=== PATIENT | male | born 1945 | race Caucasian/White ===

== ENCOUNTER 2016-08-31 20:34 | Inpatient (IN) | payer OTHER ==
[~2016-08-31] VITALS: Ht 172.7 cm; Wt 145.1 kg
[~2016-08-31 20:34] MED LIST: AMARYL 2MG TABLE2 MG PO; ASPIRIN EC81 MG PO; AUGMENTIN 875-1 EACH PO; DOXYCYCLINE HY100 MG PO; ELIQUIS5 MG PO; GLUCOPHAGE500 MG PO; LANOXIN TAB 00.25 MG PO; LASIX20 MG PO; LOPRESSOR 50 MG50 MG PO; LOSARTAN POTASS50 MG PO; NORVASC 5 MG TAB5 MG PO
[2016-08-31 21:51] LABS: HEMOGLOBIN 15.8 gm/dl (14.0-17.5); RED BLOOD COUNT 5.22 M/UL (4.20-5.50); WHITE BLOOD COUNT 7.1 K/UL (4.5-11.0)
[2016-08-31 22:12] LABS: BUN/CREATININE RATIO 14 (0-10)
[2016-09-01] MEDS ORDERED: COZAAR25 MG PO (01:43)
[2016-09-01] MEDS ORDERED: ONE-TABLET-DAI1 EACH PO (01:45)
--- NOTE | 2016-09-02 18:30 | NUR ---
NO CHANGES NOTED THIS SHIFT. NO C/O PAIN. LIFELINE WITHIN REACH. WILL CONTINUE TO MONITOR.
[2016-09-05 04:40] LABS: HEMOGLOBIN 15.3 gm/dl (14.0-17.5); RED BLOOD COUNT 5.07 M/UL (4.20-5.50); WHITE BLOOD COUNT 6.7 K/UL (4.5-11.0)
[2016-09-05 05:01] LABS: BUN/CREATININE RATIO 14 (0-10)
[2016-09-06 19:30] LABS: HEMOGLOBIN 15.4 gm/dl (14.0-17.5); RED BLOOD COUNT 5.07 M/UL (4.20-5.50); WHITE BLOOD COUNT 6.9 K/UL (4.5-11.0)
[2016-09-06 19:52] LABS: BUN/CREATININE RATIO 12 (0-10)
[2016-09-07 04:19] LABS: HEMOGLOBIN 14.8 gm/dl (14.0-17.5); RED BLOOD COUNT 4.95 M/UL (4.20-5.50); WHITE BLOOD COUNT 6.7 K/UL (4.5-11.0)
[2016-09-07] MEDS ORDERED: PLAVIX 75 MG TA75 MG PO (16:24)
[2016-09-07] MEDS ORDERED: GLUCOTROL5 MG PO (16:26)
[2016-11-18] MEDS ORDERED: LEVAQUIN500 MG PO (09:52)
[2016-11-18] MEDS ORDERED: ULTRAM50 MG PO (09:53)
== END 2016-09-07 17:49 | disposition home or self-care (01) | DRG 246 ==
LOC: ER1 20:34 → PROG CARE 23:15 → M/S 23:15 → ZEROF 23:15 → M/S 09-01 01:46 → PROG CARE 09-03 14:37
PROVIDERS: Internal Medicine; Physician Assistant; Student in an Organized Health Care Education/Training Program; ADMIT Internal Medicine
PROC: 027034Z Dilation of Coronary Artery, One Artery with Drug-eluting Intraluminal Device, Percutaneous Approach (ICD-10-PCS; principal; 2016-09-06)
PROC: 4A033BC Measurement of Arterial Pressure, Coronary, Percutaneous Approach (ICD-10-PCS; 2016-09-06)
PROC: 4A023N7 Measurement of Cardiac Sampling and Pressure, Left Heart, Percutaneous Approach (ICD-10-PCS; 2016-09-06)
PROC: B2111ZZ Fluoroscopy of Multiple Coronary Arteries using Low Osmolar Contrast (ICD-10-PCS; 2016-09-06)
DX: I25.110 Atherosclerotic heart disease of native coronary artery with unstable angina pectoris (principal); I50.23 Acute on chronic systolic (congestive) heart failure; Z68.42 Body mass index [BMI] 45.0-49.9, adult; I47.2 Ventricular tachycardia; E66.01 Morbid (severe) obesity due to excess calories; I11.0 Hypertensive heart disease with heart failure; I42.0 Dilated cardiomyopathy; I48.2 Chronic atrial fibrillation; E11.65 Type 2 diabetes mellitus with hyperglycemia; I35.0 Nonrheumatic aortic (valve) stenosis; I87.2 Venous insufficiency (chronic) (peripheral); I87.8 Other specified disorders of veins; I44.7 Left bundle-branch block, unspecified; E78.5 Hyperlipidemia, unspecified; G47.33 Obstructive sleep apnea (adult) (pediatric); Z72.89 Other problems related to lifestyle; Z85.828 Personal history of other malignant neoplasm of skin; Z72.3 Lack of physical exercise; Z79.01 Long term (current) use of anticoagulants; Z79.84 Long term (current) use of oral hypoglycemic drugs; Z79.82 Long term (current) use of aspirin; Z79.899 Other long term (current) drug therapy; Z88.5 Allergy status to narcotic agent; Z98.890 Other specified postprocedural states; Z83.3 Family history of diabetes mellitus; Z82.49 Family history of ischemic heart disease and other diseases of the circulatory system
CPT/HCPCS: ECHO; 36415; 71010; 78452; 80048; 80053; 80061; 80162; 82550; 82553; 82962; 83735; 83874; 84439; 84443; 84484; 85025; 85027; 85347; 93005; 93017; 93306; 93571; 93572; 99285; A9502; C1725; C1769; C1874; C1887; C1894; C9600; G0378; J0153; J0360; J0583; J1644; J2250; J2785; J3010; J7040; Q9963

== ENCOUNTER 2016-09-13 21:48 | Observation (INO) | payer OTHER ==
[~2016-09-13] VITALS: Ht 172.7 cm; Wt 132.0 kg
[~2016-09-13 21:48] MED LIST changes: +COZAAR25 MG PO; +GLUCOTROL5 MG PO; +ONE-TABLET-DAI1 EACH PO; +PLAVIX 75 MG TA75 MG PO
[2016-09-13 22:37] LABS: HEMOGLOBIN 15.4 gm/dl (14.0-17.5); RED BLOOD COUNT 5.07 M/UL (4.20-5.50); WHITE BLOOD COUNT 6.5 K/UL (4.5-11.0)
[2016-09-13 23:07] LABS: BUN/CREATININE RATIO 16 (0-10)
[2016-09-14] MEDS ORDERED: THERA-M CAPLET1 EACH PO (10:06)
[2016-09-14] MEDS ORDERED: GARLIC1 MG PO (10:10)
[2016-11-18] MEDS ORDERED: LEVAQUIN500 MG PO (09:52)
[2016-11-18] MEDS ORDERED: ULTRAM50 MG PO (09:53)
== END 2016-09-14 15:16 | disposition home or self-care (01) ==
LOC: ER1 21:48 → ZEROF 09-14 05:30
PROVIDERS: Family Medicine; ADMIT Hospitalist
DX: I48.2 Chronic atrial fibrillation (principal); Z68.42 Body mass index [BMI] 45.0-49.9, adult; I50.22 Chronic systolic (congestive) heart failure; I11.0 Hypertensive heart disease with heart failure; I42.0 Dilated cardiomyopathy; E78.5 Hyperlipidemia, unspecified; I44.7 Left bundle-branch block, unspecified; E11.9 Type 2 diabetes mellitus without complications; I25.10 Atherosclerotic heart disease of native coronary artery without angina pectoris; Z95.5 Presence of coronary angioplasty implant and graft; Z85.828 Personal history of other malignant neoplasm of skin; Z83.3 Family history of diabetes mellitus; Z88.5 Allergy status to narcotic agent; Z79.82 Long term (current) use of aspirin; Z79.01 Long term (current) use of anticoagulants; Z79.899 Other long term (current) drug therapy; E66.9 Obesity, unspecified; F10.20 Alcohol dependence, uncomplicated; I87.8 Other specified disorders of veins; R60.0 Localized edema; Z82.49 Family history of ischemic heart disease and other diseases of the circulatory system
CPT/HCPCS: 36415; 80053; 82550; 82553; 83874; 84484; 85025; 93005; 96374; 99285; G0378

== ENCOUNTER → 2016-10-11 | Outpatient (CLI) | payer OTHER ==
[~2016-10-11] MED LIST changes: +GARLIC1 MG PO; +LEVAQUIN500 MG PO; +THERA-M CAPLET1 EACH PO; +ULTRAM50 MG PO
== END ==
LOC: CARD REHAB 13:00
DX: Z48.812 Encounter for surgical aftercare following surgery on the circulatory system (principal); Z98.61 Coronary angioplasty status

== ENCOUNTER → 2016-10-20 | Outpatient (CLI) | payer OTHER | LOC: HEART 5 09:54 | DX: I48.91 Unspecified atrial fibrillation (principal); I50.9 Heart failure, unspecified | CPT/HCPCS: 93306 ==

== ENCOUNTER → 2020-07-14 | Outpatient (CLI) | payer OTHER ==
[~2020-07-14] MED LIST changes: +AMIODARONE HCL200 MG PO; +COZAAR100 MG PO; -COZAAR25 MG PO; +CRESTOR10 MG PO; +DIGOXIN125 MCG PO; +ENTRESTO 24 MG1 EACH PO; +ENTRESTO 49 MG1 EACH PO; +FLOMAX 0.4 MG0.4 MG PO; +IMDUR ER TAB 3030 MG PO; +JANUVIA100 MG PO; +K-DUR TAB 20 M20 MEQ PO; +LANTUS INS100 UTS/M1 SQ; +LANTUS SOL100 UNIT/1 SQ; +LANTUS100 UNIT/1 SQ; -LASIX20 MG PO; +LASIX40 MG PO; +MUPIROCIN30 GM TP; +NOVOLOG FL100 UNIT/1 SQ; +NYAMYC60 GM TOP; +TIZANIDINE HCL2 MG PO; +TRAMADOL HCL50 MG PO; +ZYVOX600 MG PO
[2020-07-14 12:33] LABS: HEMOGLOBIN 11.7 gm/dl (14.0-17.5); RED BLOOD COUNT 3.9 M/UL (4.20-5.50); WHITE BLOOD COUNT 3.4 K/UL (4.5-11.0)
== END ==
LOC: LAB 11:55
PROVIDERS: Family Medicine
DX: E11.9 Type 2 diabetes mellitus without complications (principal); E78.5 Hyperlipidemia, unspecified; I10 Essential (primary) hypertension; E55.9 Vitamin D deficiency, unspecified; I48.91 Unspecified atrial fibrillation
CPT/HCPCS: 36415; 80053; 80061; 80162; 84439; 84443; 84481; 85025

== ENCOUNTER 2020-07-22 02:45 | Emergency (ER) | payer OTHER ==
[~2020-07-22 02:45] MED LIST changes: -LANTUS SOL100 UNIT/1 SQ; -MUPIROCIN30 GM TP; -NYAMYC60 GM TOP; -ZYVOX600 MG PO
[2020-07-22 06:06] LABS: BUN/CREATININE RATIO 11 (0-10)
[2020-07-22 06:13] LABS: HEMOGLOBIN 11.2 gm/dl (14.0-17.5); RED BLOOD COUNT 3.79 M/UL (4.20-5.50); WHITE BLOOD COUNT 3.3 K/UL (4.5-11.0)
== END 2020-07-22 07:15 | disposition home or self-care (01) ==
LOC: ER1 02:45
PROVIDERS: Family Medicine
DX: D69.6 Thrombocytopenia, unspecified (principal); I50.9 Heart failure, unspecified; E11.9 Type 2 diabetes mellitus without complications; Z88.5 Allergy status to narcotic agent; Z88.8 Allergy status to other drugs, medicaments and biological substances
CPT/HCPCS: 80053; 82550; 82553; 83874; 83880; 84484; 85025; 85610; 93005; 99283

== ENCOUNTER → 2020-08-08 | Outpatient (CLI) | payer OTHER ==
[~2020-08-08] MED LIST changes: +LANTUS SOL100 UNIT/1 SQ; +MUPIROCIN30 GM TP; +NYAMYC60 GM TOP; +ZYVOX600 MG PO
== END ==
LOC: US 10:00
DX: D69.6 Thrombocytopenia, unspecified (principal); R16.1 Splenomegaly, not elsewhere classified
CPT/HCPCS: 76705

== ENCOUNTER → 2020-08-18 | Outpatient (CLI) | payer OTHER | LOC: HEART 5 08:57 | DX: Z79.899 Other long term (current) drug therapy (principal); R06.00 Dyspnea, unspecified; R05 Cough; R06.2 Wheezing | CPT/HCPCS: 94060; 94729 ==

== ENCOUNTER 2020-08-26 15:44 | Inpatient (IN) | payer OTHER ==
[~2020-08-26] VITALS: Ht 175.3 cm; Wt 146.1 kg
[~2020-08-26 15:44] MED LIST changes: -LANTUS SOL100 UNIT/1 SQ; -MUPIROCIN30 GM TP; -NYAMYC60 GM TOP; -ZYVOX600 MG PO
[2020-08-26 17:13] LABS: HEMOGLOBIN 10.7 gm/dl (14.0-17.5); RED BLOOD COUNT 3.45 M/UL (4.20-5.50); WHITE BLOOD COUNT 3.7 K/UL (4.5-11.0)
[2020-08-26] MEDS ORDERED: LANTUS SOL100 UNIT/1 SQ (20:31)
[2020-08-26] MEDS ORDERED: NYAMYC60 GM TOP (20:36)
[2020-08-26] MEDS ORDERED: MUPIROCIN30 GM TP (20:38)
[2020-08-27 04:30] LABS: HEMOGLOBIN 10.7 gm/dl (14.0-17.5); RED BLOOD COUNT 3.52 M/UL (4.20-5.50); WHITE BLOOD COUNT 4.2 K/UL (4.5-11.0)
--- NOTE | 2020-08-27 17:10 | NUR ---
APPLIED BACTROBANN OINTMENT TO BILATERAL LOWER EXTRIMITIES AND OPEN TO AIR.PATIENT PRISCILLA WELL
--- NOTE | 2020-08-28 07:35 | NUR ---
PT STATES HE HAS TO HAVE BLOOD PRESSURE MEDS EVEN THOUGH HIS BLOOD PRESSURE IS IN THE HIGH 90"S SYSTOLIC. I EXPLAINED THE RISK OF LOW BLOOD PRESSURE AND HE STILL WANTED THEM
[2020-08-29] MEDS ORDERED: ZYVOX600 MG PO (12:31)
== END 2020-08-29 15:27 | disposition home or self-care (01) | DRG 603 ==
LOC: ER1 15:44 → CDU 18:16 → MED SURG 4 18:16
PROVIDERS: Emergency Medicine; ADMIT Internal Medicine
DX: L03.115 Cellulitis of right lower limb (principal); I50.32 Chronic diastolic (congestive) heart failure; I13.0 Hypertensive heart and chronic kidney disease with heart failure and stage 1 through stage 4 chronic kidney disease, or unspecified chronic kidney disease; I42.0 Dilated cardiomyopathy; D61.818 Other pancytopenia; Z68.42 Body mass index [BMI] 45.0-49.9, adult; L97.819 Non-pressure chronic ulcer of other part of right lower leg with unspecified severity; Z20.822 Contact with and (suspected) exposure to COVID-19; N18.30 Chronic kidney disease, stage 3 unspecified; I25.10 Atherosclerotic heart disease of native coronary artery without angina pectoris; E78.5 Hyperlipidemia, unspecified; E66.01 Morbid (severe) obesity due to excess calories; I87.2 Venous insufficiency (chronic) (peripheral); E11.622 Type 2 diabetes mellitus with other skin ulcer; I35.0 Nonrheumatic aortic (valve) stenosis; I87.8 Other specified disorders of veins; I48.91 Unspecified atrial fibrillation; Z95.5 Presence of coronary angioplasty implant and graft; Z79.01 Long term (current) use of anticoagulants; Z95.810 Presence of automatic (implantable) cardiac defibrillator; Z88.6 Allergy status to analgesic agent; Z88.8 Allergy status to other drugs, medicaments and biological substances; Z83.3 Family history of diabetes mellitus; Z82.49 Family history of ischemic heart disease and other diseases of the circulatory system; Z79.4 Long term (current) use of insulin
CPT/HCPCS: 36415; 80048; 80053; 80202; 82962; 83735; 85025; 85652; 86140; 96374; 99284; G0378; J0696; J2543; J3370; J7070; U0002

== ENCOUNTER → 2021-02-02 | Outpatient (CLI) | payer OTHER ==
[~2021-02-02] MED LIST changes: +LANTUS SOL100 UNIT/1 SQ; +MUPIROCIN30 GM TP; +NYAMYC60 GM TOP; +ZYVOX600 MG PO
== END ==
LOC: KOH-I 11:23
DX: M25.562 Pain in left knee (principal); M17.12 Unilateral primary osteoarthritis, left knee
CPT/HCPCS: 73560

== ENCOUNTER → 2021-02-23 | Outpatient (CLI) | payer OTHER ==
[2021-02-23 16:42] LABS: RED BLOOD COUNT 3.82 M/UL (4.20-5.50); WHITE BLOOD COUNT 3.5 K/UL (4.5-11.0)
== END ==
LOC: LAB 12:18
PROVIDERS: Internal Medicine Cardiovascular Disease
DX: D64.9 Anemia, unspecified (principal); I48.91 Unspecified atrial fibrillation; R60.9 Edema, unspecified; I47.2 Ventricular tachycardia; I11.0 Hypertensive heart disease with heart failure; I50.22 Chronic systolic (congestive) heart failure; I25.119 Atherosclerotic heart disease of native coronary artery with unspecified angina pectoris; E78.5 Hyperlipidemia, unspecified; I25.5 Ischemic cardiomyopathy; I42.0 Dilated cardiomyopathy; Z79.899 Other long term (current) drug therapy
CPT/HCPCS: 80076; 84439; 84443; 84481; 85025

== ENCOUNTER 2021-09-16 14:17 | Inpatient (IN) | payer OTHER ==
[~2021-09-16] VITALS: Ht 175.3 cm; Wt 152.9 kg
[2021-09-16 15:24] LABS: HEMOGLOBIN 10.5 gm/dl (14.0-17.5); RED BLOOD COUNT 3.46 M/UL (4.20-5.50); WHITE BLOOD COUNT 4.2 K/UL (4.5-11.0)
[2021-09-16 16:02] LABS: BUN/CREATININE RATIO 18 (0-10)
[2021-09-16] MEDS ORDERED: LEVOTHYROXINE150 MCG PO (22:27)
[2021-09-16] MEDS ORDERED: HYDROCODON-ACE1 EAC4 PO (22:29)
[2021-09-17 06:28] LABS: HEMOGLOBIN 10.3 gm/dl (14.0-17.5); RED BLOOD COUNT 3.4 M/UL (4.20-5.50)
[2021-09-17 06:29] LABS: WHITE BLOOD COUNT 5.6 K/UL (4.5-11.0)
[2021-09-17 06:42] LABS: BUN/CREATININE RATIO 16 (0-10)
[2021-09-17] MEDS ORDERED: AMMONIUM LACTA225 GM TOP (12:03)
[2021-09-17] MEDS ORDERED: CLINDAMYCIN HC300 MG PO (12:04)
[2021-09-17] MEDS ORDERED: MYCOSTATIN100000 UTS PO (12:04)
[2021-09-17] MEDS ORDERED: FOLIC ACID 1 MG1 MG PO (12:05)
[2021-09-17] MEDS ORDERED: B-122500 MCG SL (12:05)
[2021-09-17] MEDS ORDERED: DIGOXIN125 MCG PO (12:06)
[2021-09-18 04:32] LABS: HEMOGLOBIN 9.7 gm/dl (14.0-17.5); RED BLOOD COUNT 3.2 M/UL (4.20-5.50); WHITE BLOOD COUNT 5.2 K/UL (4.5-11.0)
[2021-09-18 04:58] LABS: BUN/CREATININE RATIO 14 (0-10)
[2021-09-19 03:28] LABS: HEMOGLOBIN 9.5 gm/dl (14.0-17.5); RED BLOOD COUNT 3.16 M/UL (4.20-5.50); WHITE BLOOD COUNT 4.5 K/UL (4.5-11.0)
[2021-09-19 04:01] LABS: BUN/CREATININE RATIO 14 (0-10)
--- NOTE | 2021-09-19 14:13 | NUR ---
09/19/21 1400 REPORT CALLED TO [facility] FOR [facility]
[2021-09-19] MEDS ORDERED: CIPRO500 MG PO (14:50)
== END 2021-09-19 16:32 | disposition home health service (06) | DRG 603 ==
LOC: ER1 14:17 → CDU 21:50 → M/S 21:50
PROVIDERS: Internal Medicine Infectious Disease; ADMIT Internal Medicine
DX: L03.116 Cellulitis of left lower limb (principal); I50.22 Chronic systolic (congestive) heart failure; Z20.822 Contact with and (suspected) exposure to COVID-19; I48.20 Chronic atrial fibrillation, unspecified; Z68.42 Body mass index [BMI] 45.0-49.9, adult; L03.115 Cellulitis of right lower limb; I87.8 Other specified disorders of veins; Z88.8 Allergy status to other drugs, medicaments and biological substances; I11.0 Hypertensive heart disease with heart failure; E66.01 Morbid (severe) obesity due to excess calories; I45.4 Nonspecific intraventricular block; B96.5 Pseudomonas (aeruginosa) (mallei) (pseudomallei) as the cause of diseases classified elsewhere; I48.0 Paroxysmal atrial fibrillation; E11.9 Type 2 diabetes mellitus without complications; E78.5 Hyperlipidemia, unspecified; Z96.698 Presence of other orthopedic joint implants; D63.8 Anemia in other chronic diseases classified elsewhere; E03.9 Hypothyroidism, unspecified; D69.6 Thrombocytopenia, unspecified; I25.5 Ischemic cardiomyopathy; Z95.810 Presence of automatic (implantable) cardiac defibrillator; Z79.01 Long term (current) use of anticoagulants; Z95.5 Presence of coronary angioplasty implant and graft
CPT/HCPCS: 36415; 80048; 80053; 82550; 82553; 82607; 82962; 83036; 83605; 83735; 84484; 85025; 85652; 86140; 87040; 87070; 87077; 87186; 87205; 93005; 96365; 96366; 96375; 99284; J1940; J2185; J2543; J3370; J7030; J7070

== ENCOUNTER → 2021-09-28 | Outpatient (CLI) | payer OTHER ==
[~2021-09-28] MED LIST changes: +AMMONIUM LACTA225 GM TOP; +B-122500 MCG SL; +CIPRO500 MG PO; +CLINDAMYCIN HC300 MG PO; +FOLIC ACID 1 MG1 MG PO; +HYDROCODON-ACE1 EAC4 PO; +LEVOTHYROXINE150 MCG PO; +MYCOSTATIN100000 UTS PO
== END ==
LOC: HEART 5 13:00
DX: I50.22 Chronic systolic (congestive) heart failure (principal); I25.10 Atherosclerotic heart disease of native coronary artery without angina pectoris; I08.3 Combined rheumatic disorders of mitral, aortic and tricuspid valves; I27.20 Pulmonary hypertension, unspecified; Z95.0 Presence of cardiac pacemaker
CPT/HCPCS: 93306

== ENCOUNTER → 2021-11-11 | Outpatient (CLI) | payer OTHER | END | disposition home or self-care (01) | LOC: WCC 07:37 | DX: I87.313 Chronic venous hypertension (idiopathic) with ulcer of bilateral lower extremity (principal); I13.0 Hypertensive heart and chronic kidney disease with heart failure and stage 1 through stage 4 chronic kidney disease, or unspecified chronic kidney disease; E11.22 Type 2 diabetes mellitus with diabetic chronic kidney disease; N18.9 Chronic kidney disease, unspecified; I50.9 Heart failure, unspecified; I48.91 Unspecified atrial fibrillation; I25.10 Atherosclerotic heart disease of native coronary artery without angina pectoris; E66.01 Morbid (severe) obesity due to excess calories; B96.5 Pseudomonas (aeruginosa) (mallei) (pseudomallei) as the cause of diseases classified elsewhere; Z68.42 Body mass index [BMI] 45.0-49.9, adult; Z88.8 Allergy status to other drugs, medicaments and biological substances ==

== ENCOUNTER → 2021-11-18 | Outpatient (CLI) | payer OTHER | LOC: WCC 07:32 | DX: I87.333 Chronic venous hypertension (idiopathic) with ulcer and inflammation of bilateral lower extremity (principal); L03.116 Cellulitis of left lower limb; L03.115 Cellulitis of right lower limb; B96.5 Pseudomonas (aeruginosa) (mallei) (pseudomallei) as the cause of diseases classified elsewhere; I13.0 Hypertensive heart and chronic kidney disease with heart failure and stage 1 through stage 4 chronic kidney disease, or unspecified chronic kidney disease; E11.22 Type 2 diabetes mellitus with diabetic chronic kidney disease; I50.42 Chronic combined systolic (congestive) and diastolic (congestive) heart failure; N18.9 Chronic kidney disease, unspecified; I25.10 Atherosclerotic heart disease of native coronary artery without angina pectoris; E11.622 Type 2 diabetes mellitus with other skin ulcer; E66.01 Morbid (severe) obesity due to excess calories; I89.0 Lymphedema, not elsewhere classified; Z68.42 Body mass index [BMI] 45.0-49.9, adult; Z88.5 Allergy status to narcotic agent; Z79.01 Long term (current) use of anticoagulants ==

== ENCOUNTER 2021-11-30 15:30 | Inpatient (IN) | payer OTHER ==
[~2021-11-30] VITALS: Ht 175.3 cm; Wt 149.7 kg
[~2021-11-30 15:30] MED LIST changes: -HYDROCODON-ACE1 EAC4 PO; +HYDROCODON-ACE1 EAC6 PO
[2021-11-30 18:41] LABS: HEMOGLOBIN 11.3 gm/dl (14.0-17.5); RED BLOOD COUNT 3.81 M/UL (4.20-5.50); WHITE BLOOD COUNT 5.7 K/UL (4.5-11.0)
[2021-11-30 19:04] LABS: BUN/CREATININE RATIO 15 (0-10)
[2021-12-01 05:01] LABS: HEMOGLOBIN 10.3 gm/dl (14.0-17.5); RED BLOOD COUNT 3.53 M/UL (4.20-5.50); WHITE BLOOD COUNT 6.8 K/UL (4.5-11.0)
[2021-12-01] MEDS ORDERED: NITROGLYCERIN0.4 MG SL (09:15)
[2021-12-01] MEDS ORDERED: IRON325 M1 PO (11:28)
[2021-12-02 03:52] LABS: HEMOGLOBIN 10.3 gm/dl (14.0-17.5); RED BLOOD COUNT 3.49 M/UL (4.20-5.50); WHITE BLOOD COUNT 5.6 K/UL (4.5-11.0)
[2021-12-03 02:31] LABS: HEMOGLOBIN 10.8 gm/dl (14.0-17.5); RED BLOOD COUNT 3.63 M/UL (4.20-5.50)
[2021-12-03] MEDS ORDERED: DOXYCYCLINE HY100 MG PO (10:05)
[2021-12-03] MEDS ORDERED: CEPHALEXIN500 MG PO (10:05)
[2021-12-03] MEDS ORDERED: FERROUS SULFAT325 M2 PO (10:05)
--- NOTE | 2021-12-03 14:43 | NUR ---
1200- ATTEMPTED TO CALL REPORT TO [facility]. HAD TO LEAVE A MESSAGE FOR NURSE TO RETURN MY CALL.
== END 2021-12-03 14:25 | disposition home or self-care (01) | DRG 603 ==
LOC: ER1 15:30 → CDU 21:58 → M/S 21:58
PROVIDERS: Internal Medicine; Nurse Practitioner; ADMIT Internal Medicine
DX: L03.116 Cellulitis of left lower limb (principal); K62.5 Hemorrhage of anus and rectum; I50.22 Chronic systolic (congestive) heart failure; Z20.822 Contact with and (suspected) exposure to COVID-19; I13.0 Hypertensive heart and chronic kidney disease with heart failure and stage 1 through stage 4 chronic kidney disease, or unspecified chronic kidney disease; Z68.42 Body mass index [BMI] 45.0-49.9, adult; I87.2 Venous insufficiency (chronic) (peripheral); I48.91 Unspecified atrial fibrillation; E03.9 Hypothyroidism, unspecified; E11.22 Type 2 diabetes mellitus with diabetic chronic kidney disease; I25.10 Atherosclerotic heart disease of native coronary artery without angina pectoris; I25.5 Ischemic cardiomyopathy; I35.0 Nonrheumatic aortic (valve) stenosis; D69.6 Thrombocytopenia, unspecified; N18.30 Chronic kidney disease, stage 3 unspecified; M19.90 Unspecified osteoarthritis, unspecified site; E66.9 Obesity, unspecified; Z79.01 Long term (current) use of anticoagulants; Z95.5 Presence of coronary angioplasty implant and graft; Z99.3 Dependence on wheelchair; Z98.890 Other specified postprocedural states; Z82.49 Family history of ischemic heart disease and other diseases of the circulatory system; Z88.8 Allergy status to other drugs, medicaments and biological substances; Z88.6 Allergy status to analgesic agent
CPT/HCPCS: 36415; 80048; 80053; 80202; 81001; 82533; 82607; 82728; 82746; 82962; 83036; 83540; 83550; 83605; 83735; 83880; 84439; 84443; 85025; 85610; 85652; 85730; 86140; 87040; 93005; 93970; 96374; 96375; 99284; J0690; J1335; J1756; J1940; J2185; J3370; J7030; J7070

== ENCOUNTER → 2021-12-09 | Outpatient (CLI) | payer OTHER ==
[~2021-12-09] MED LIST changes: +CEPHALEXIN500 MG PO; +FERROUS SULFAT325 M2 PO; +IRON325 M1 PO; +NITROGLYCERIN0.4 MG SL
== END ==
LOC: WCC 07:21
DX: L03.116 Cellulitis of left lower limb (principal); I87.313 Chronic venous hypertension (idiopathic) with ulcer of bilateral lower extremity; R60.0 Localized edema; I13.0 Hypertensive heart and chronic kidney disease with heart failure and stage 1 through stage 4 chronic kidney disease, or unspecified chronic kidney disease; E11.22 Type 2 diabetes mellitus with diabetic chronic kidney disease; N18.9 Chronic kidney disease, unspecified; I50.42 Chronic combined systolic (congestive) and diastolic (congestive) heart failure; I25.10 Atherosclerotic heart disease of native coronary artery without angina pectoris; E11.622 Type 2 diabetes mellitus with other skin ulcer; E66.01 Morbid (severe) obesity due to excess calories; I89.0 Lymphedema, not elsewhere classified; Z88.6 Allergy status to analgesic agent; Z88.5 Allergy status to narcotic agent; Z88.8 Allergy status to other drugs, medicaments and biological substances

== ENCOUNTER → 2021-12-16 | Outpatient (CLI) | payer OTHER | LOC: WCC 08:18 | DX: L03.116 Cellulitis of left lower limb (principal); I87.313 Chronic venous hypertension (idiopathic) with ulcer of bilateral lower extremity; I87.2 Venous insufficiency (chronic) (peripheral); R60.0 Localized edema; I25.10 Atherosclerotic heart disease of native coronary artery without angina pectoris; I13.0 Hypertensive heart and chronic kidney disease with heart failure and stage 1 through stage 4 chronic kidney disease, or unspecified chronic kidney disease; E11.22 Type 2 diabetes mellitus with diabetic chronic kidney disease; N18.9 Chronic kidney disease, unspecified; I50.42 Chronic combined systolic (congestive) and diastolic (congestive) heart failure; E11.622 Type 2 diabetes mellitus with other skin ulcer; E66.01 Morbid (severe) obesity due to excess calories; I89.0 Lymphedema, not elsewhere classified; E66.9 Obesity, unspecified; Z88.6 Allergy status to analgesic agent; Z88.5 Allergy status to narcotic agent; Z88.8 Allergy status to other drugs, medicaments and biological substances ==

== ENCOUNTER → 2021-12-23 | Outpatient (CLI) | payer OTHER | LOC: WCC 08:25 | DX: L03.116 Cellulitis of left lower limb (principal); I87.313 Chronic venous hypertension (idiopathic) with ulcer of bilateral lower extremity; B96.5 Pseudomonas (aeruginosa) (mallei) (pseudomallei) as the cause of diseases classified elsewhere; I13.0 Hypertensive heart and chronic kidney disease with heart failure and stage 1 through stage 4 chronic kidney disease, or unspecified chronic kidney disease; E11.22 Type 2 diabetes mellitus with diabetic chronic kidney disease; N18.9 Chronic kidney disease, unspecified; I50.42 Chronic combined systolic (congestive) and diastolic (congestive) heart failure; I25.10 Atherosclerotic heart disease of native coronary artery without angina pectoris; E11.622 Type 2 diabetes mellitus with other skin ulcer; E66.01 Morbid (severe) obesity due to excess calories; I89.0 Lymphedema, not elsewhere classified; Z79.01 Long term (current) use of anticoagulants; Z88.5 Allergy status to narcotic agent; Z68.42 Body mass index [BMI] 45.0-49.9, adult ==

== ENCOUNTER → 2021-12-24 | Outpatient (CLI) | payer OTHER ==
[~2021-12-24] VITALS: Ht 175.3 cm; Wt 149.7 kg
== END | disposition home or self-care (01) ==
LOC: OPSV 13:22
DX: I87.313 Chronic venous hypertension (idiopathic) with ulcer of bilateral lower extremity (principal); B96.5 Pseudomonas (aeruginosa) (mallei) (pseudomallei) as the cause of diseases classified elsewhere; I50.42 Chronic combined systolic (congestive) and diastolic (congestive) heart failure; I25.10 Atherosclerotic heart disease of native coronary artery without angina pectoris; E11.22 Type 2 diabetes mellitus with diabetic chronic kidney disease; E11.622 Type 2 diabetes mellitus with other skin ulcer; I89.0 Lymphedema, not elsewhere classified
CPT/HCPCS: 71045; 96365; C1751; J2185

== ENCOUNTER → 2021-12-30 | Outpatient (CLI) | payer OTHER | LOC: WCC 08:11 | DX: L03.115 Cellulitis of right lower limb (principal); L03.116 Cellulitis of left lower limb; I87.333 Chronic venous hypertension (idiopathic) with ulcer and inflammation of bilateral lower extremity; B96.5 Pseudomonas (aeruginosa) (mallei) (pseudomallei) as the cause of diseases classified elsewhere; I50.42 Chronic combined systolic (congestive) and diastolic (congestive) heart failure; I25.10 Atherosclerotic heart disease of native coronary artery without angina pectoris; I13.0 Hypertensive heart and chronic kidney disease with heart failure and stage 1 through stage 4 chronic kidney disease, or unspecified chronic kidney disease; E11.22 Type 2 diabetes mellitus with diabetic chronic kidney disease; N18.9 Chronic kidney disease, unspecified; I50.9 Heart failure, unspecified; E11.622 Type 2 diabetes mellitus with other skin ulcer; E66.01 Morbid (severe) obesity due to excess calories; I89.0 Lymphedema, not elsewhere classified; Z68.42 Body mass index [BMI] 45.0-49.9, adult; Z88.5 Allergy status to narcotic agent; Z79.01 Long term (current) use of anticoagulants; Z79.4 Long term (current) use of insulin ==

== ENCOUNTER → 2021-12-31 | Outpatient (CLI) | payer OTHER ==
[2021-12-31 14:16] LABS: RED BLOOD COUNT 3.43 M/UL (4.20-5.50); WHITE BLOOD COUNT 3.6 K/UL (4.5-11.0)
[2021-12-31 14:49] LABS: BUN/CREATININE RATIO 18 (0-10)
== END ==
LOC: OPSV 13:00
PROVIDERS: Nurse Practitioner Family
DX: I87.313 Chronic venous hypertension (idiopathic) with ulcer of bilateral lower extremity (principal); B96.5 Pseudomonas (aeruginosa) (mallei) (pseudomallei) as the cause of diseases classified elsewhere; R60.0 Localized edema; I50.42 Chronic combined systolic (congestive) and diastolic (congestive) heart failure; I25.10 Atherosclerotic heart disease of native coronary artery without angina pectoris; E11.22 Type 2 diabetes mellitus with diabetic chronic kidney disease; E11.622 Type 2 diabetes mellitus with other skin ulcer; E66.01 Morbid (severe) obesity due to excess calories; I89.0 Lymphedema, not elsewhere classified
CPT/HCPCS: 80053; 85027

== ENCOUNTER → 2022-01-04 | Outpatient (CLI) | payer OTHER | LOC: OPSV 15:00 | DX: I87.313 Chronic venous hypertension (idiopathic) with ulcer of bilateral lower extremity (principal); E11.622 Type 2 diabetes mellitus with other skin ulcer; L97.929 Non-pressure chronic ulcer of unspecified part of left lower leg with unspecified severity; L97.919 Non-pressure chronic ulcer of unspecified part of right lower leg with unspecified severity; B96.5 Pseudomonas (aeruginosa) (mallei) (pseudomallei) as the cause of diseases classified elsewhere; R60.0 Localized edema; I50.42 Chronic combined systolic (congestive) and diastolic (congestive) heart failure; I25.10 Atherosclerotic heart disease of native coronary artery without angina pectoris; E11.22 Type 2 diabetes mellitus with diabetic chronic kidney disease; E66.01 Morbid (severe) obesity due to excess calories; I89.0 Lymphedema, not elsewhere classified; Z79.01 Long term (current) use of anticoagulants | CPT/HCPCS: G0463 ==

== ENCOUNTER → 2022-01-06 | Outpatient (CLI) | payer OTHER | LOC: OPSV 11:56 | DX: I87.313 Chronic venous hypertension (idiopathic) with ulcer of bilateral lower extremity (principal); B96.5 Pseudomonas (aeruginosa) (mallei) (pseudomallei) as the cause of diseases classified elsewhere; R60.0 Localized edema; I50.42 Chronic combined systolic (congestive) and diastolic (congestive) heart failure; I25.10 Atherosclerotic heart disease of native coronary artery without angina pectoris; Z79.01 Long term (current) use of anticoagulants; E11.22 Type 2 diabetes mellitus with diabetic chronic kidney disease; E11.622 Type 2 diabetes mellitus with other skin ulcer; E66.01 Morbid (severe) obesity due to excess calories; I89.0 Lymphedema, not elsewhere classified | CPT/HCPCS: G0463 ==

== ENCOUNTER → 2022-01-06 | Outpatient (CLI) | payer OTHER | LOC: HEART 5 11:14 | DX: R06.02 Shortness of breath (principal); Z79.899 Other long term (current) drug therapy | CPT/HCPCS: 94060; 94729 ==

== ENCOUNTER → 2022-01-08 | Outpatient (CLI) | payer OTHER ==
[~2022-01-08] MED LIST changes: -LEVOTHYROXINE150 MCG PO; +LEVOTHYROXINE175 MCG PO
== END ==
LOC: OPSV 12:00
DX: E03.9 Hypothyroidism, unspecified (principal); E78.5 Hyperlipidemia, unspecified; I10 Essential (primary) hypertension; I25.10 Atherosclerotic heart disease of native coronary artery without angina pectoris; I25.5 Ischemic cardiomyopathy; I42.0 Dilated cardiomyopathy; I47.2 Ventricular tachycardia; I48.91 Unspecified atrial fibrillation; I50.22 Chronic systolic (congestive) heart failure; R06.02 Shortness of breath; Z79.899 Other long term (current) drug therapy
CPT/HCPCS: 80076; 84439; 84443; 84481

== ENCOUNTER → 2022-01-11 | Outpatient (CLI) | payer OTHER | LOC: WCC 07:52 | DX: I87.313 Chronic venous hypertension (idiopathic) with ulcer of bilateral lower extremity (principal); E11.622 Type 2 diabetes mellitus with other skin ulcer; L97.822 Non-pressure chronic ulcer of other part of left lower leg with fat layer exposed; L97.812 Non-pressure chronic ulcer of other part of right lower leg with fat layer exposed; L03.115 Cellulitis of right lower limb; L03.116 Cellulitis of left lower limb; B96.5 Pseudomonas (aeruginosa) (mallei) (pseudomallei) as the cause of diseases classified elsewhere; I89.0 Lymphedema, not elsewhere classified; I48.91 Unspecified atrial fibrillation; E11.51 Type 2 diabetes mellitus with diabetic peripheral angiopathy without gangrene; E11.22 Type 2 diabetes mellitus with diabetic chronic kidney disease; I13.0 Hypertensive heart and chronic kidney disease with heart failure and stage 1 through stage 4 chronic kidney disease, or unspecified chronic kidney disease; N18.9 Chronic kidney disease, unspecified; I50.42 Chronic combined systolic (congestive) and diastolic (congestive) heart failure; I25.10 Atherosclerotic heart disease of native coronary artery without angina pectoris; E66.9 Obesity, unspecified; Z68.42 Body mass index [BMI] 45.0-49.9, adult; Z79.01 Long term (current) use of anticoagulants; Z79.4 Long term (current) use of insulin; Z79.899 Other long term (current) drug therapy ==

== ENCOUNTER 2022-01-12 09:49 | Inpatient (IN) | payer OTHER ==
[~2022-01-12] VITALS: Ht 175.3 cm; Wt 147.9 kg
[2022-01-12 11:09] LABS: HEMOGLOBIN 9.3 gm/dl (14.0-17.5); RED BLOOD COUNT 3.09 M/UL (4.20-5.50); WHITE BLOOD COUNT 5.2 K/UL (4.5-11.0)
[2022-01-12 11:47] LABS: BUN/CREATININE RATIO 22 (0-10)
[2022-01-13 07:22] LABS: HEMOGLOBIN 8.5 gm/dl (14.0-17.5); RED BLOOD COUNT 2.9 M/UL (4.20-5.50); WHITE BLOOD COUNT 5.3 K/UL (4.5-11.0)
[2022-01-13 08:10] LABS: BUN/CREATININE RATIO 23 (0-10)
[2022-01-14 02:30] LABS: HEMOGLOBIN 8.7 gm/dl (14.0-17.5); RED BLOOD COUNT 2.9 M/UL (4.20-5.50); WHITE BLOOD COUNT 7.2 K/UL (4.5-11.0)
[2022-01-14 02:47] LABS: BUN/CREATININE RATIO 19 (0-10)
[2022-01-15 02:43] LABS: BUN/CREATININE RATIO 25 (0-10)
[2022-01-16 02:41] LABS: BUN/CREATININE RATIO 23 (0-10)
[2022-01-17 02:03] LABS: BUN/CREATININE RATIO 26 (0-10)
[2022-01-19 15:11] LABS: HEMOGLOBIN A1C 5.6 % (4.8-5.6)
== END 2022-01-17 11:11 | disposition home or self-care (01) | DRG 291 ==
LOC: ER1 09:49 → PROG CARE 13:37 → CDU 13:37 → PROG CARE 01-13 13:05
PROVIDERS: Emergency Medicine; Internal Medicine; Physician Assistant Medical; ADMIT Internal Medicine
PROC: 5A09557 Assistance with Respiratory Ventilation, Greater than 96 Consecutive Hours, Continuous Positive Airway Pressure (ICD-10-PCS; principal; 2022-01-12)
DX: I11.0 Hypertensive heart disease with heart failure (principal); I50.23 Acute on chronic systolic (congestive) heart failure; J96.21 Acute and chronic respiratory failure with hypoxia; I48.21 Permanent atrial fibrillation; I47.2 Ventricular tachycardia; L03.116 Cellulitis of left lower limb; L03.115 Cellulitis of right lower limb; Z68.42 Body mass index [BMI] 45.0-49.9, adult; I25.5 Ischemic cardiomyopathy; I44.7 Left bundle-branch block, unspecified; E78.5 Hyperlipidemia, unspecified; E66.01 Morbid (severe) obesity due to excess calories; I35.0 Nonrheumatic aortic (valve) stenosis; I87.2 Venous insufficiency (chronic) (peripheral); Z20.822 Contact with and (suspected) exposure to COVID-19; D69.6 Thrombocytopenia, unspecified; D64.9 Anemia, unspecified; I25.10 Atherosclerotic heart disease of native coronary artery without angina pectoris; Z96.652 Presence of left artificial knee joint; I27.20 Pulmonary hypertension, unspecified; Z95.1 Presence of aortocoronary bypass graft; Z85.828 Personal history of other malignant neoplasm of skin; Z98.890 Other specified postprocedural states; Z88.8 Allergy status to other drugs, medicaments and biological substances; Z88.5 Allergy status to narcotic agent; Z79.01 Long term (current) use of anticoagulants; Z79.899 Other long term (current) drug therapy; Z82.49 Family history of ischemic heart disease and other diseases of the circulatory system; Z83.3 Family history of diabetes mellitus; Z95.810 Presence of automatic (implantable) cardiac defibrillator
CPT/HCPCS: 36415; 36600; 51702; 71045; 80048; 80053; 81001; 82550; 82553; 82803; 82962; 83036; 83605; 83735; 83880; 84484; 85025; 85027; 85610; 85730; 87040; 93005; 94640; 94660; 94760; 96374; 96376; 99285; J1940; J2185; U0002

== ENCOUNTER → 2022-01-19 | Outpatient (CLI) | payer OTHER | LOC: WCC 08:18 | DX: L03.116 Cellulitis of left lower limb (principal); I87.313 Chronic venous hypertension (idiopathic) with ulcer of bilateral lower extremity; R60.0 Localized edema; I50.42 Chronic combined systolic (congestive) and diastolic (congestive) heart failure; I25.10 Atherosclerotic heart disease of native coronary artery without angina pectoris; E11.22 Type 2 diabetes mellitus with diabetic chronic kidney disease; N18.9 Chronic kidney disease, unspecified; E11.622 Type 2 diabetes mellitus with other skin ulcer; E66.01 Morbid (severe) obesity due to excess calories; I89.0 Lymphedema, not elsewhere classified; Z79.01 Long term (current) use of anticoagulants; Z88.6 Allergy status to analgesic agent; Z88.5 Allergy status to narcotic agent; Z88.8 Allergy status to other drugs, medicaments and biological substances ==

== ENCOUNTER → 2022-01-22 | Outpatient (CLI) | payer OTHER | LOC: OPSV 13:00 | DX: I87.313 Chronic venous hypertension (idiopathic) with ulcer of bilateral lower extremity (principal); E11.622 Type 2 diabetes mellitus with other skin ulcer; L97.929 Non-pressure chronic ulcer of unspecified part of left lower leg with unspecified severity; L97.919 Non-pressure chronic ulcer of unspecified part of right lower leg with unspecified severity; B96.5 Pseudomonas (aeruginosa) (mallei) (pseudomallei) as the cause of diseases classified elsewhere; R60.0 Localized edema; I25.10 Atherosclerotic heart disease of native coronary artery without angina pectoris; Z79.01 Long term (current) use of anticoagulants; E11.22 Type 2 diabetes mellitus with diabetic chronic kidney disease; N18.9 Chronic kidney disease, unspecified; E66.01 Morbid (severe) obesity due to excess calories; I89.0 Lymphedema, not elsewhere classified | CPT/HCPCS: G0463 ==